=== PATIENT | male | born 1990 | race Caucasian/White ===

== ENCOUNTER 2019-09-14 08:29 | Emergency (ER) | payer OTHER ==
[2019-09-14] MEDS ORDERED: Ibuprofen 200 MG TAB ONE (09:18)
== END 2019-09-14 09:32 ==
LOC: NAV ERS 08:29
DX: H00.012 Hordeolum externum right lower eyelid (principal); L01.00 Impetigo, unspecified; Z87.891 Personal history of nicotine dependence; E03.9 Hypothyroidism, unspecified; Z79.899 Other long term (current) drug therapy
CPT/HCPCS: 99283